=== PATIENT | male | born 1955 | race Caucasian/White ===

== ENCOUNTER 2018-12-14 10:39 | Day surgery (SDC) | payer MEDICARE ==
[2018-12-12 11:47] VITALS: BMI 25.8
--- NOTE | 2018-12-14 07:55 | P.HPOR ---
History of Present Illness H&P Date: 12/14/18 This patient is a 63 year old male that presents to [facility] today for elective surgery. The patient has been followed in the office by Dr. 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 Conservative treatment including rest, ice, activity modification, NSAIDs, shoe modifications and orthotics was no providing adequate relief, therefore patient requested surgery. Past Medical History Past Medical History: Hearing Disorder / Deafness, Osteoarthritis (OA) Additional Past Medical History / Comment(s): "Some hearing loss." History of Any Multi-Drug Resistant Organisms: None Reported Past Surgical History: Hernia Repair, Orthopedic Surgery Additional Past Surgical History / Comment(s): Skin grafting left hand, double hernia repair, knee scope, cataract surgery. Past Anesthesia/Blood Transfusion Reactions: No Reported Reaction Past Psychological History: No Psychological Hx Reported Smoking Status: Former smoker Past Alcohol Use History: Occasional Additional Past Alcohol Use History / Comment(s): Quit smoking 15 yrs ago. Past Drug Use History: None Reported - Past Family History Mother Family Medical History: No Reported History Medications and Allergies Home Medications Medication Instructions Recorded Confirmed Type No Known Home Medications 12/12/18 12/12/18 History Allergies Allergy/AdvReac Type Severity Reaction Status Date / Time No Known Allergies Allergy Verified 12/12/18 11:48 Physical Examination On inspection of the right foot, there is no erythema, warmth. There is a dorsal prominence over the 1st MTP joint. Tenderness to palpation of the 1st MTP joint. Pain and crepitance with PROM of the 1st MTP joint. The foot is warm and well perfused with brisk capillary refill. Sensation is intact to light touch of the dorsal and plantar foot, as well and the first dorsal webspace. Assessment and Plan Assessment: Right hallux rigidus Plan: - We will plan for a first MTP joint implant arthroplasty (Cartiva) today with Dr. Fernandes. - Patient will follow-up in the office 2 weeks post-operatively. Patient seen and examined by Dr. Fernandes.
[~2018-12-14 10:39] MED LIST: DEXAMETHASONE SOD PHOSPHATE 10 MG/ML 1 ML VIAL IV ONE; LACTATED RINGERS 1,000 ML IV SCH; LIDOCAINE 1% 20 ML VIAL (10MG/ML) FOR IV START INTRADERMA PRN; MIDAZOLAM 2 MG/2 ML VIAL IV PRN; ceFAZolin IN SWFI 2 GM/20 ML SYRINGE IVP ONE; fentaNYL (PF) 50 MCG/ML 2 ML AMP IV PRN
[2018-12-14 10:55] VITALS: RESP 16; TEMP 97.8
[2018-12-14] MEDS ORDERED: ONDANSETRON 4 MG/2 ML VIAL IVP ONE (11:13)
[2018-12-14] MEDS ORDERED: fentaNYL (PF) 50 MCG/ML 2 ML AMP ONE (13:14)
[2018-12-14] MEDS ORDERED: HYDROmorphone (PF) 1 MG/ML ONE (13:14)
[2018-12-14] MEDS ORDERED: MIDAZOLAM 2 MG/2 ML VIAL ONE (13:14)
[2018-12-14] MEDS ORDERED: PROPOFOL 10 MG/ML 20 ML VIAL IV ONE (13:14)
[2018-12-14] MEDS ORDERED: LIDOCAINE 1% INJ 10MG/ML (20 ML MDV) ONE (13:14)
[2018-12-14] MEDS ORDERED: BUPIVACAINE (PF) 0.25% 30 ML VIAL SQ ONE ×2 (13:38)
[2018-12-14] MEDS ORDERED: LACTATED RINGERS 1,000 ML IV ONE (13:52)
--- NOTE | 2018-12-14 14:16 | P.OP ---
Date of Procedure: 12/14/18 Preoperative Diagnosis: Right moderate hallux rigidus Postoperative Diagnosis: Same Procedure(s) Performed: Right first MTP implant arthroplasty Anesthesia: LISA Surgeon: Juan Fernandes Watch Adjuster #1: Melquiades Mcleod Estimated Blood Loss (ml): 5 IV fluids (ml): 1,000 Pathology: none sent Condition: stable Disposition: PACU Indications for Procedure: Patient very pleasant 63-year-old male flossing history of problems of right hallux rigidus. He failed nonsurgical treatment and came to my office to discuss surgical options. His x-ray showed moderate arthritis with large dorsal spurs. Clinically he had pain to the passive range of motion and with passive dorsiflexion. We discussed surgical treatment with a fusion versus implant arthroplasty. We discussed the pros and cons of both. The patient requested implant arthroplasty with Cartiva. We discussed 5 year outcome date is comparable to fusion. We discussed potential risks and competitions of surgery including but not limited to risk of anesthesia superficial infection deep infection delayed wound healing failure of implant, subsidence of implant, stiffness, progression of arthritis, continued or worsened pain requiring revision surgery, DVT, PE, other medical complications, generalized to satisfaction with surgery, possible loss of life or limb. The patient voiced his understanding of these pressure complications particularly implant failure requiring her vision to effusion. He provided his verbal and and consented for the surgery. Description of Procedure: Patient then underwent operative holding and the correct right foot was marked with my initials. I reviewed the consent form with the patient and his . All their questions were answered. The patient was then brought back to the operating room by anesthesia. He was positioned on the OR table and a general anesthetic and preoperative and elects were given. A tourniquet was applied to the proximal aspect of the right thigh. The right leg was then prepped and draped in the standard sterile fashion. Prior to starting surgery timeout was performed identifying the correct patient, operative extremity, and procedure. The patient's leg was then elevated, exsanguinated with Esmarch bandage, and the tourniquet was inflated to 250 mmHg. A longitudinal incision was marked out over the dorsal aspect of the first MTP joint. Skin incision with a scalpel and dissection was carried down carefully through the subcu tissues tissue with tenotomy scissors. The EHL tendon sheath was incised and the tendon retracted laterally. The first MTP joint capsule was incised longitudinally in line with the skin incision. The first metatarsal head was circumferentially exposed. On inspection of her large dorsal osteophytes which were carefully contoured with a [place]. On inspection the first metatarsal head there was full-thickness cartilage loss over the dorsal two thirds of the metatarsal head. The metatarsal head appeared to accommodate a 10 mm plug. The sizing guide was placed over the central aspect of the metatarsal head and a K wire was driven down the central aspect of the metatarsal. The reamer was used to create a cavity for the Cartiva implant. The reamer was left 1 mm proud so the implant would sit 2-3 mm proud. The vault was carefully debrided and irrigated. A 10 mm Cartiva implant was then press- fit into the cavity. On inspection the implant appeared solid. The patient had nice motion. The wound was thoroughly irrigated. The capsule was closed with a running 3-0 Monocryl. The deep subcu was reapproximated using 3-0 Monocryl interrupted stitches. The skin was closed using 3-0 nylon horizontal mattress stitches. 10 mL's of half percent Marcaine was injected around the incision. A sterile dressing was applied. The patient was then awoken from his anesthetic, transferred to a gurney, and brought to recovery haven't helped procedure well. Plan: The patient is going to be discharged home as an outpatient. He can heel weight-bear in a tall boot. He will leave his dressing on for 2 days. In 2 days he can change his dressing. He'll follow-up in 2 weeks for wound check only. He is not reduction was at that time.
[2018-12-14 15:35] VITALS: BP 143/92; PULSE 74
== END 2018-12-14 15:57 | disposition home or self-care (01) ==
LOC: OR 10:39
PROVIDERS: ATTEND Orthopaedic Surgery
DX: M20.21 Hallux rigidus, right foot (principal); M25.774 Osteophyte, right foot; H91.90 Unspecified hearing loss, unspecified ear; Z98.49 Cataract extraction status, unspecified eye; Z87.891 Personal history of nicotine dependence
CPT/HCPCS: 28291; C1713; J2250; J1100; J0690; J2405; J2001; J3010; J1170; J2704

== ENCOUNTER → 2019-04-26 | Outpatient (CLI) | payer MEDICARE ==
[2019-04-26 12:42] LABS: Basophils # (A) 0.1 k/uL (0-0.2); Basophils % (A) 2 %; Eosinophils # (A) 0.2 k/uL (0-0.7); Eosinophils % (A) 3 %; Lymphocytes # (A) 1.5 k/uL (1.0-4.8); Lymphocytes % (A) 23 %; MCH 30.8 pg (25.0-35.0); MCHC 33.4 g/dL (31.0-37.0); MCV 92.3 fL (80.0-100.0); Mean Platelet Volume 6.5; Monocytes # (A) 0.4 k/uL (0-1.0); Monocytes % (A) 6 %; Neutrophils # (A) 4.2 k/uL (1.3-7.7); Neutrophils % (A) 65 %; Platelet Count 242 k/uL (150-450); RBC 5.52 m/uL (4.30-5.90); RDW 13.2 % (11.5-15.5); WBC 6.5 k/uL (3.8-10.6)
[2019-04-26 16:33] LABS: African American GFR (CKD) 72.6 (60.0-200.0); Albumin 4.2 g/dL (3.80-4.90); Albumin/Globulin Ratio 1.91 (1.60-3.17); Anion Gap 6.2 mmol/L (4.00-12.00); BUN/Creat Ratio 15.83 Ratio (12.00-20.00); Bilirubin, Conjugated 0.3 mg/dL (0.20-0.40); Bilirubin,Unconjugated 0.7 mg/dL; Calcium 9.4 mg/dL (8.7-10.3); Carbon Dioxide 28.8 mmol/L (21.6-31.8); Chol/HDL Ratio 5.31; Globulin 2.2 g/dL (1.6-3.3); LDL Cholesterol,Calculated 167.2 mg/dL (0.0-131.0); Non-African American GFR(CKD) 62.6 (60.0-200.0); Potassium 4.4 mmol/L (3.5-5.5); Total Protein 6.4 g/dL (6.2-8.2); VLDL Calculation 13.8 mg/dL (5.00-40.00)
[2019-04-26 16:40] LABS: T4, Free (Free Thyroxine) 0.9 ng/dL (0.80-1.80)
== END | disposition home or self-care (01) ==
LOC: LABWHC1 12:04
PROVIDERS: ATTEND Nurse Practitioner Family
DX: Z00.00 Encounter for general adult medical examination without abnormal findings (principal)
CPT/HCPCS: 36415; 80053; 80061; 82248; 84439; 84443; 85025

== ENCOUNTER 2020-03-22 10:15 | Emergency (ER) | payer MEDICARE ==
[2020-03-22 10:20] VITALS: BP 172/123; PULSE 78; RESP 18; TEMP 98.2
[2020-03-22] MEDS ORDERED: predniSONE 50 MG TAB PO STA (10:51)
--- NOTE | 2020-03-22 10:54 | ED ---
General Adult HPI - General Chief complaint: Allergic Reaction Stated complaint: tongue swelling Time Seen by Provider: 03/22/20 10:20 Source: patient, RN notes reviewed, old records reviewed Mode of arrival: ambulatory Limitations: no limitations - History of Present Illness Initial comments: This is a 65-year-old male who presents emergency Department complaining of his tongue being swollen. Patient states she's had this happen multiple times in the past and it usually resolves throughout the day. Patient states he doesn't know what he is ALLERGIC to but continues to occur. Patient denies any medications. Patient denies eating anything different but one mint last night. Patient denies any difficulty breathing or swallowing. Patient denies any chest pain or palpitations per patient denies any pain. - Related Data Previous Rx's Medication Instructions Recorded Aspirin 325 mg PO DAILY #14 tab 12/14/18 Docusate [Colace] 100 mg PO BID #60 capsule 12/14/18 Hydrocodone/Acetaminophen [[place] 1 tab PO Q6HR PRN #28 tab 12/14/18 5-325] predniSONE [Deltasone] 40 mg PO DAILY #8 tab 03/22/20 Allergies Allergy/AdvReac Type Severity Reaction Status Date / Time No Known Allergies Allergy Verified 03/22/20 10:17 Review of Systems ROS Statement: Those systems with pertinent positive or pertinent negative responses have been documented in the HPI. ROS Other: All systems not noted in ROS Statement are negative. Past Medical History Past Medical History: Hearing Disorder / Deafness, Osteoarthritis (OA) Additional Past Medical History / Comment(s): "Some hearing loss." History of Any Multi-Drug Resistant Organisms: None Reported Past Surgical History: Hernia Repair, Orthopedic Surgery Additional Past Surgical History / Comment(s): Skin grafting left hand, double hernia repair, knee scope, cataract surgery. Past Anesthesia/Blood Transfusion Reactions: No Reported Reaction Past Psychological History: No Psychological Hx Reported Smoking Status: Never smoker Past Alcohol Use History: Occasional Past Drug Use History: None Reported - Past Family History Mother Family Medical History: No Reported History General Exam - General Exam Comments Initial Comments: GENERAL: Patient is well-developed and well-nourished. Patient is nontoxic and well- hydrated and is in no acute distress. ENT: Neck is soft and supple. No significant lymphadenopathy is noted. Patient has a swollen tongue more on the left than the right. Moist mucous membranes. Neck has full range of motion without eliciting any pain. EYES: The sclera were anicteric and conjunctiva were pink and moist. Extraocular m ovements were intact and pupils were equal round and reactive to light. Eyelids were unremarkable. PULMONARY: Unlabored respirations. Good breath sounds bilaterally. No audible rales rhonchi or wheezing was noted. CARDIOVASCULAR: There is a regular rate and rhythm without any murmurs gallops or rubs. SKIN: Skin is clear with no lesions or rashes and otherwise unremarkable. NEUROLOGIC: Patient is alert and oriented x3. Cranial nerves II through XII are grossly intact. Speech is slightly muffled but understandable. MUSCULOSKELETAL: Normal extremities with adequate strength and full range of motion. LYMPHATICS: No significant lymphadenopathy is noted PSYCHIATRIC: Normal psychiatric evaluation. Limitations: no limitations Course Vital Signs 03/22/20 10:18 Temperature 98.2 F Pulse Rate 78 Respiratory 18 Rate Blood Pressure 172/123 O2 Sat by Pulse 100 Oximetry Medical Decision Making - Medical Decision Making According to the patient he states that the swelling of the tongue is already going down. Patient states she did take Benadryl prior to arrival. Disposition Clinical Impression: Angioedema Disposition: HOME SELF-CARE Instructions (If sedation given, give patient instructions): Angioedema (ED) Additional Instructions: Patient is to return if the symptoms worsen or there is any difficulty breathing or swallowing. Prescriptions: predniSONE [Deltasone] 40 mg PO DAILY #8 tab Is patient prescribed a controlled substance at d/c from ED?: No Referrals: Camden Dacosta MD [Primary Care Provider] - 1-2 days Time of Disposition: 10:52
== END 2020-03-22 11:05 | disposition home or self-care (01) ==
LOC: EC 10:15
DX: T78.3XXA Angioneurotic edema, initial encounter (principal); H91.90 Unspecified hearing loss, unspecified ear
CPT/HCPCS: 99283; J7512

== ENCOUNTER → 2024-09-28 | Outpatient (CLI) | payer MEDICARE ==
[2024-09-28 19:57] LABS: ALT 31 U/L (10-49); AST 30 U/L (14-35); Albumin 4.2 g/dL (3.8-4.9); Alkaline Phosphatase 138 U/L (41-126); BUN/Creat Ratio 8.77 Ratio (12.00-20.00); Blood Urea Nitrogen 11.4 mg/dL (9.0-27.0); Calcium 9.4 mg/dL (8.7-10.3); Carbon Dioxide 25.5 mmol/L (21.6-31.8); Chloride 104 mmol/L (96-109); Glucose 112 mg/dL (70-110); Potassium 5.1 mmol/L (3.5-5.5); Sodium 140 mmol/L (135-145); Total Bilirubin 0.8 mg/dL (0.3-1.2); Total Protein 7.2 g/dL (6.2-8.2)
--- NOTE | 2024-09-28 21:35 | US ---
EXAMINATION TYPE: US liver DATE OF EXAM: 09/28/2024 COMPARISON: NONE CLINICAL INDICATION: Male, 69 years old with history of R7.01 ELEV OF LEVELS OF LIVER TRANSAMINASE LE VELS; TECHNIQUE: Grayscale and color Doppler imaging of the right upper quadrant was performed. FINDINGS: EXAM MEASUREMENTS: Liver Length: 13.5 cm Gallbladder Wall: 0.2 cm CBD: 0.3 cm Right Kidney: 9.5 x 4.8 x 4.8 cm Pancreas: obscured by overlying midline bowel gas Liver: limited - scanned intercostally, coarsened echotexture with increased echogenicity. No focal lesion identified. Gallbladder: wnl Evidence for sonographic Weaver's sign: no CBD: visualized portions wnl, limited by overlying bowel gas Right Kidney: wnl IMPRESSION: Findings suggest moderate hepatic steatosis or other nonspecific hepatocellular disease. Correlate wi th LFTs, lipid profile, and patient risk factors. No gallstones or biliary ductal dilatation. [facility], , 09/28/2024 9:32 PM
[2024-09-28 22:14] LABS: Gliadin AB IgA, Deaminated Negative (Negative); Gliadin AB IgA, Unit 0.7 U/mL; Gliadin AB IgG, Deaminated Negative (Negative); Gliadin AB IgG, Unit <0.4 U/mL
== END | disposition home or self-care (01) ==
LOC: RADUSWWP 12:24
PROVIDERS: ATTEND Internal Medicine Gastroenterology
DX: R74.01 Elevation of levels of liver transaminase levels (principal)
CPT/HCPCS: 76705; 80053; 83516

== ENCOUNTER → 2024-12-05 | Outpatient (CLI) | payer MEDICARE ==
[2024-12-05 19:58] LABS: Basophils # (A) 0.07 X 10*3/uL (0.00-0.10); Basophils % (A) 1.0 %; Eosinophils # (A) 0.29 X 10*3/uL (0.04-0.35); Eosinophils % (A) 4.0 %; HCT 50.8 % (39.6-50.0); HGB 16.4 g/dL (13.0-17.0); Immature Grans, Automated 0.30 %; Lymphocytes # (A) 1.68 X 10*3/uL (0.90-5.00); Lymphocytes % (A) 23.4 %; MCH 29.2 pg (27.0-32.0); MCHC 32.3 g/dL (32.0-37.0); MCV 90.6 FL (80.0-97.0); Monocytes # (A) 0.58 X 10*3/uL (0.20-1.00); Monocytes % (A) 8.1 %; NRBC Per 100 WBC 0 X 10*3/uL (0.00-0.01); Neutrophils # (A) 4.55 X 10*3/uL (1.80-7.70); Neutrophils % (A) 63.2 %; Platelet Count 215 X 10*3/uL (140-440); RBC 5.61 X 10*6/uL (4.40-5.60); RDW 13.5 % (11.5-14.5); WBC 7.19 X 10*3/uL (4.50-10.00)
[2024-12-05 20:03] LABS: ALT 34 U/L (10-49); AST 29 U/L (14-35); Albumin 4.4 g/dL (3.8-4.9); Albumin/Globulin Ratio 1.47 Ratio (1.60-3.17); Alkaline Phosphatase 134 U/L (41-126); Anion Gap 12.00 mmol/L (4.00-12.00); BUN/Creat Ratio 13.00 Ratio (12.00-20.00); Blood Urea Nitrogen 16.9 mg/dL (9.0-27.0); Calcium 9.2 mg/dL (8.7-10.3); Carbon Dioxide 23.0 mmol/L (21.6-31.8); Chloride 104 mmol/L (96-109); Globulin 3.0 g/dL (1.6-3.3); Glucose 104 mg/dL (70-110); Potassium 4.7 mmol/L (3.5-5.5); Sodium 139 mmol/L (135-145); Total Protein 7.4 g/dL (6.2-8.2)
[2024-12-05 20:24] LABS: Ferritin 160.0 ng/mL (22.0-322.0); Hepatitis B Surface Antigen Nonreactive (Nonreactive); Hepatitis C IgG Antibody Nonreactive (Nonreactive); Iron 111 UG/DL (65-175); Total Iron Binding Capacity 305 UG/DL (228-460)
== END | disposition home or self-care (01) ==
LOC: LABWHC1 14:59
PROVIDERS: ATTEND Nurse Practitioner Family
DX: R74.01 Elevation of levels of liver transaminase levels (principal)
CPT/HCPCS: 36415; 80053; 81596; 82103; 82390; 82728; 83516; 83540; 83550; 84165; 85025; 86038; 86803; 87340